=== PATIENT | female | born 1985 | race African-American/Black ===

== ENCOUNTER 2019-07-15 14:23 | Outpatient (CLI) | payer OTHER | END 2019-07-15 14:24 | disposition home or self-care (01) | LOC: ULT 14:23 | PROVIDERS: ATTEND Family Medicine | DX: R01.1 Cardiac murmur, unspecified (principal); I08.1 Rheumatic disorders of both mitral and tricuspid valves | CPT/HCPCS: 93306 ==

== ENCOUNTER 2019-10-21 15:28 | Outpatient (CLI) | payer OTHER ==
--- NOTE | 2019-10-21 16:17 | RAD ---
EXAM: Two views chest PROVIDED CLINICAL HISTORY: Night sweats. COMPARISON: None FINDINGS: Cardiac silhouette and pulmonary vasculature are within normal limits. The lungs are clear. The osse ous structures have a normal appearance. IMPRESSION: No acute cardiopulmonary process.
== END 2019-10-21 15:29 | disposition home or self-care (01) ==
LOC: BICRAD 15:28
PROVIDERS: ATTEND Family Medicine
DX: R61 Generalized hyperhidrosis (principal)
CPT/HCPCS: 71046

== ENCOUNTER 2024-06-04 08:16 | Outpatient (CLI) | payer OTHER | END 2024-06-04 08:17 | disposition home or self-care (01) | LOC: ULT 08:16 | PROVIDERS: ATTEND Internal Medicine Gastroenterology | DX: R10.13 Epigastric pain (principal); R14.0 Abdominal distension (gaseous); R19.8 Other specified symptoms and signs involving the digestive system and abdomen; R19.4 Change in bowel habit | CPT/HCPCS: 76700 ==